=== PATIENT | male | born 1995 | race Caucasian/White ===

== ENCOUNTER 2022-11-03 15:49 | Emergency (ER) | payer OTHER ==
[2022-11-03] MEDS ORDERED: Acetaminophen 500 MG TAB ONE (17:28)
== END 2022-11-03 17:36 | disposition home or self-care (01) ==
LOC: ERS 15:49
DX: S42.022A Displaced fracture of shaft of left clavicle, initial encounter for closed fracture (principal); V87.8XXA Person injured in other specified noncollision transport accidents involving motor vehicle (traffic), initial encounter